=== PATIENT | female | born 1955 | race Caucasian/White ===

== ENCOUNTER 2020-12-16 14:36 | Inpatient (IN) | payer MEDICAID, SELFPAY ==
[~2020-12-16] VITALS: Ht 162.6 cm; Wt 71.2 kg
[2020-12-16 14:41] VITALS: BP_SYST 193
[2020-12-16] MEDS ORDERED: LORazepam 2 MG/ML VIAL ONE ×2 (14:48→17:35)
[2020-12-16] MEDS ORDERED: LORazepam 2 MG/ML VIAL IVP ONE ×4 (15:00→17:45)
[2020-12-16] MEDS ORDERED: NACL 0.9% 1,000 ML IV ONE (15:45)
[2020-12-16 16:18] LABS: BASOPHILS % (AUTO) 0.6 % (0.0-2.0); EOSINOPHILS # (AUTO) 0.2 K/uL (0.0-0.4); HEMATOCRIT 50.8 % (36-48); HEMOGLOBIN 16.2 g/dL (12.0-16.0); LYMPHOCYTES # (AUTO) 3.8 K/uL (1.0-5.5); MEAN CORPUSCULAR HEMOGLOBIN 27 pg (27-31); MEAN CORPUSCULAR HGB CONC 32 % (32-36); MEAN CORPUSCULAR VOLUME 84 fL (79.0-98.0); MONOCYTES # (AUTO) 0.6 K/uL (0.0-1.0); MONOCYTES % (AUTO) 7.9 % (1.7-9.3); NEUTROPHILS # (AUTO) 3.2 K/uL (1.8-7.7); NEUTROPHILS % (AUTO) 40.5 % (40.0-70.0); PLATELET COUNT (AUTO) 227 K/uL (130-430); RED BLOOD CELL COUNT(AUTO) 6.02 MIL/uL (4.2-6.2); RED CELL DISTRIBUTION WIDTH 23.5 % (9.0-15.0); WHITE BLOOD COUNT (AUTO) 7.9 K/uL (4.8-10.8)
[2020-12-16 16:19] LABS: CALCIUM 9.6 mg/dL (8.4-11.0); CREATININE 0.93 mg/dL (0.55-1.30); POTASSIUM 3.7 mmol/L (3.5-5.1)
[2020-12-16 16:25] LABS: ALBUMIN 3.8 g/dL (3.4-4.8); TOTAL BILIRUBIN 0.5 mg/dL (0.0-1.0)
[2020-12-16] MEDS ORDERED: ONDANSETRON HCL 4 MG/2 ML VIAL IVP ONE (17:30)
[2020-12-16] MEDS ORDERED: levETIRAcetam 500 MG IV PREMIX 100 ML IV ONE (19:15)
[2020-12-16 20:00] VITALS: BP_SYST 113
[2020-12-16] MEDS ORDERED: LORazepam 2 MG/ML VIAL IVP PRN (21:15)
[2020-12-16] MEDS: D5NS 1,000 ML IV SCH (23:13)
[2020-12-16] MEDS: levETIRAcetam 500 MG in NS 100 ML IV SCH (23:15)
[2020-12-17 00:03] VITALS: BP_SYST 122
[2020-12-17 02:03] VITALS: BP_SYST 113
[2020-12-17] MEDS: D5NS 1,000 ML IV SCH ×3 (06:40→23:59)
[2020-12-17] MEDS ORDERED: VITD400 PO (07:34)
[2020-12-17] MEDS ORDERED: LACT10SO7 PO (07:34)
[2020-12-17] MEDS ORDERED: DOCU-144 PO (07:34)
[2020-12-17] MEDS ORDERED: DIVA-74 PO (07:34)
[2020-12-17] MEDS ORDERED: PROXL60 PO (07:34)
[2020-12-17] MEDS ORDERED: SIMV20TA2 PO (07:34)
[2020-12-17] MEDS ORDERED: SERT50TA PO (07:34)
[2020-12-17] MEDS ORDERED: OLAN7.5T3 PO (07:34)
[2020-12-17] MEDS ORDERED: ASA81 PO (07:34)
[2020-12-17 07:45] VITALS: BP_SYST 119
[2020-12-17] MEDS: levETIRAcetam 500 MG in NS 100 ML IV SCH ×2 (09:29→20:23)
[2020-12-17] MEDS: DIVALPROEX SODIUM 500 MG TABLET( DEPAKOTE) PO SCH ×2 (09:31→20:43)
[2020-12-17 12:02] VITALS: BP_SYST 122
[2020-12-17 16:02] VITALS: BP_SYST 107
[2020-12-17 20:45] VITALS: BP_SYST 116
[2020-12-18 05:00] VITALS: BP_SYST 112
[2020-12-18 07:54] VITALS: BP_SYST 131
[2020-12-18] MEDS: DIVALPROEX SODIUM 500 MG TABLET( DEPAKOTE) PO SCH ×2 (08:47→21:15)
[2020-12-18] MEDS: levETIRAcetam 500 MG in NS 100 ML IV SCH ×2 (08:49→21:15)
[2020-12-18] MEDS ORDERED: LEVE500T53 PO (10:34)
[2020-12-18 12:03] VITALS: BP_SYST 124
[2020-12-18] MEDS: D5NS 1,000 ML IV SCH ×2 (13:15→23:15)
[2020-12-18 16:54] VITALS: BP_SYST 195
[2020-12-18 20:00] VITALS: BP_SYST 128
[2020-12-19 02:11] VITALS: BP_SYST 135
[2020-12-19 07:48] VITALS: BP_SYST 179
[2020-12-19] MEDS: DIVALPROEX SODIUM 500 MG TABLET( DEPAKOTE) PO SCH ×2 (08:54→21:00)
[2020-12-19] MEDS: levETIRAcetam 500 MG in NS 100 ML IV SCH ×2 (08:55→21:00)
[2020-12-19 12:00] VITALS: BP_SYST 150
[2020-12-19] MEDS: D5NS 1,000 ML IV SCH ×2 (12:34→21:00)
[2020-12-19 14:47] VITALS: BP_SYST 154
[2020-12-19 16:00] VITALS: BP_SYST 166
[2020-12-19 20:00] VITALS: BP_SYST 144
[2020-12-20 01:29] VITALS: BP_SYST 127
[2020-12-20] MEDS: D5NS 1,000 ML IV SCH (05:15)
[2020-12-20 08:00] VITALS: BP_SYST 172
[2020-12-20] MEDS: DIVALPROEX SODIUM 500 MG TABLET( DEPAKOTE) PO SCH (08:39)
[2020-12-20] MEDS: levETIRAcetam 500 MG in NS 100 ML IV SCH (08:39)
[2020-12-20 09:46] VITALS: BP_SYST 146
[2020-12-20 10:00] VITALS: BP_SYST 146
[2020-12-20 12:09] VITALS: BP_SYST 145
== END 2020-12-20 11:55 | DRG 53 ==
LOC: SED 14:36 → STU 19:19 → SMU 12-17 11:04
PROVIDERS: ADMIT Internal Medicine Hospice and Palliative Medicine; ATTEND Internal Medicine Hospice and Palliative Medicine
DX: G40.409 Other generalized epilepsy and epileptic syndromes, not intractable, without status epilepticus (principal); F03.90 Unspecified dementia, unspecified severity, without behavioral disturbance, psychotic disturbance, mood disturbance, and anxiety; E11.9 Type 2 diabetes mellitus without complications; F20.9 Schizophrenia, unspecified; E78.5 Hyperlipidemia, unspecified; F31.9 Bipolar disorder, unspecified; I25.10 Atherosclerotic heart disease of native coronary artery without angina pectoris; Z20.822 Contact with and (suspected) exposure to COVID-19
CPT/HCPCS: 36415; 70450-TC; 71045; 76376; 80053; 80164; 85025; 87081; 93005; 95816; 96361; 96365; 96375; 96376; 99285; G0378; J1953; J2060; J2405